=== PATIENT | female | born 1995 | race African-American/Black ===

== ENCOUNTER 2022-04-09 09:26 | Emergency (ER) | payer OTHER, SELFPAY ==
[2022-04-09 09:29] VITALS: BP 138/95; PULSE 76; RESP 18; TEMP 36.6; O2SAT 99; BMI 30.4
[2022-04-09] MEDS: Acetaminophen 325 MG TABLET 975 MG PO (10:22)
--- NOTE | 2022-04-09 10:41 | ED.HA ---
HPI - Headache General Chief Complaint: Headache Stated Complaint: headaches/ Time Seen by Provider: 04/09/22 09:48 Source: patient Mode of arrival: ambulatory Limitations: no limitations History of Present Illness HPI Narrative: 26 yo female who is currently 16(lisa) weeks presents to the ER for evaluation of 1 week of frontal headaches. She states she wakes up with a dull frontal headache each day. She has been taking ibuprofen for them and was not aware it was contraindicated in . She is also not taking a vitamin. She just moved here from [place] and has not seen an OB since she was about 12 weeks along, had a normal sonogram at that time. She denies any vision changes. No vaginal bleeding or cramping. No fever or chills. She presents with her 4 yo son who has had a cough for 2 weeks. She denies any URI symptoms. MD elicited complaint: headache Onset (ago): week(s) (1) Onset description: gradually Location: frontal Severity: moderate Pain scale (0-10): 5 Quality & Timing: aching Relieving factors: rest Context: occurred at rest Associated symptoms: none Treatments prior to arrival: none Related Data Previous Rx's Medication Instructions Recorded acetaminophen 650 mg 650 mg PO Q8H PRN headache #30 tabs 04/09/22 tablet,extended release (Tylenol 8 Hour) vit no.37-iron fum 29 mg 1 tab PO DAILY #30 tabs 04/09/22 iron-folic acid 1 mg chewable tablet (PreNata) Allergies Allergy/AdvReac Type Severity Reaction Status Date / Time Unable to Assess Allergy Verified 04/09/22 09:55 Review of Systems Review of Systems: Constitutional: No Fever, No Chills ENT/Mouth: No sore throat, No Rhinorrhea, No Swallowing Difficulty Eyes: No Eye Pain, No Swelling, No Redness, No vision changes Cardiovascular: No Chest Pain, No SOB, No Edema Respiratory: No Cough, No Sputum, No Wheezing, No dyspnea Gastrointestinal: + Nausea, No Vomiting, No Diarrhea, No abdominal Pain Genitourinary: No Dysuria, No Urinary Frequency, No Hematuria Musculoskeletal: No joint pain, No Myalgias Skin: No Skin Lesions, No rash Neuro: No Weakness, No Numbness, No Dizziness, + Headache Heme/Lymph: No Bruising, No Lymphadenopathy PMFSH Social History Social History Advance Directives: No Advance Directives Information Provided: No Physical Exam Vital Signs: Vital Signs: Last Vital Signs Temp 98 F 04/09/22 09:29 Pulse 76 04/09/22 09:29 Resp 18 04/09/22 09:29 BP 138/95 H 04/09/22 09:29 Pulse Ox 99 04/09/22 09:29 O2 Del Method 04/09/22 09:29 BMI result Body Mass Index 30.4 Appearance: Alert. Oriented X3. No acute distress. Eyes: Pupils equal, round and reactive to light. ENT: Pharynx normal. Neck: Normal inspection. Neck supple. CVS: Normal heart rate and rhythm. Pulses normal. Respiratory: No respiratory distress. Breath sounds normal. Abdomen: Soft and nontender. Gravid uterus palpable between umbilicus and pubic symphysis, normal +BS x4 Skin: Skin warm and dry. Normal skin color. Normal skin turgor. No rashes. Extremities: No lower extremity edema. Neuro: Oriented X 3. No motor deficit. No sensory deficit. Steady gait. CN II-XII intact. Normal speech Course Course Course Narrative: 26-year-old female who is currently 17 weeks presents to the ER for evaluation daily frontal headaches for the last 1 week. No other symptoms. She unfortunately has been taking Motrin for headaches and is not on a . She was counseled today and agrees to follow up with RN CLINICAL COORDINATOR here. She has no neuro deficits and appears well. Tylenol given. COVID and flu checked given her son's symptoms. Reevaluation(s) Reevaluation #1: COVID and Flu are negative. She is stable for d/c home with outpatient OB follow up. MDM - Headache Lab Data Labs: Lab Results 04/09/22 04/09/22 Range/Units 10:20 10:20 COVID-19 (ROSA MARIA) Negative (Negative) COVID-19 Clin Com See Note Influenza Type A (GUNNAR) Negative (Negative) Influenza Type B (GUNNAR) Negative (Negative) Influenza A & B Note See Note Critical Care Time Critical Care Time Critical Care Time: No Discharge Plan Discharge Clinical Impression: Headache, Patient Disposition: Home, Self-Care Instructions: General Headache (ED), at 15 to 18 Weeks (ED) Additional Instructions: You tested negative for COVID and influenza today. Tylenol is the only medication that you can safely take for headaches with . It is important that you start taking the prescribed vitamin. Or you can take any [id number]-[id number] vitamin. It is important that you follow-up with OBGYN. Name and number below. If your last menstrual period was on December 07 your estimated delivery date is September 13 and you are 17 weeks, 4 days today. You will need an ultrasound at the 20 week jalil for anatomy scan. Your blood pressure was slightly elevated today. This will be important for you to follow-up with OBGYN, especially once you have the 20 week jalil. Make sure you are drinking plenty of water. Avoid additional salt in your diet. If you develop new or worsening symptoms call 911 or come back to the ER for further evaluation. Prescriptions: New PreNata 29 mg iron- 1 mg tablet,chewable 1 tab PO DAILY Qty: 30 0RF acetaminophen [Tylenol 8 Hour] 650 mg tablet extended release 650 mg PO Q8H PRN (Reason: headache) Qty: 30 0RF Referrals: Steven Sher MD [Physician] - ( Seventeen weeks , no care) Interventions: ED Discharge Assessment Last Done: 04/09/22 11:56 Discharge Date/Time: 04/09/22 12:04
[2022-04-09 10:49] LABS: COVID-19 Test Negative (Negative); IDNOW Serial# 16C4AD1C; Influenza A Negative (Negative); Influenza B2 Negative (Negative)
== END 2022-04-09 12:04 | disposition home or self-care (01) ==
PROVIDERS: Physician Assistant; Emergency Provider Emergency Medicine
DX: O26.92 Pregnancy related conditions, unspecified, second trimester (principal); R51.9 Headache, unspecified; Z3A.16 16 weeks gestation of pregnancy; Z20.822 Contact with and (suspected) exposure to COVID-19; Z79.899 Other long term (current) drug therapy
CPT/HCPCS: 87502; 87635; 99283

== ENCOUNTER 2022-05-30 14:16 | Emergency (ER) | payer OTHER, SELFPAY ==
[2022-05-30 14:56] VITALS: BP 141/76; PULSE 91; RESP 16; TEMP 36.6; O2SAT 100; BMI 34.9
--- NOTE | 2022-05-30 14:59 | ED.GENADULT ---
HPI - General Adult General Chief complaint: Back Pain/Injury Stated complaint: back pain Related Data Previous Rx's Medication Instructions Recorded acetaminophen 650 mg 650 mg PO Q8H PRN headache #30 tabs 04/09/22 tablet,extended release (Tylenol 8 Hour) vit no.37-iron fum 29 mg 1 tab PO DAILY #30 tabs 04/09/22 iron-folic acid 1 mg chewable tablet (PreNata) Allergies Allergy/AdvReac Type Severity Reaction Status Date / Time Unable to Assess Allergy Verified 04/09/22 09:55 [facility] Social History Social History Advance Directives: No Advance Directives Information Provided: No Physical Exam ED Vital Signs: Vital Signs - 24 hr 05/30/22 14:56 Temperature 98 F Pulse Rate 91 Respiratory Rate 16 Blood Pressure 141/76 H Pulse Oximetry 100 Oxygen Delivery Method Room Air BMI result Body Mass Index 34.9 Course Course Course Narrative: RME: patient presents to the ED for lower back pain that is worse on movement. patient denies any urinary symptoms. patient states no abdominal pain or flank pain. patient states no trauma. UA, UR preg and lumbar xray Reevaluation(s) Reevaluation #1: Lumbar xray cancelled. patient states she is 5 months . patient denies any vomitting, abdominal pain, vaginal bleeding, dysuria, hematuria, or any recent trauma. Time: 15:21 Medical Decision Making Lab Data Labs: Lab Results 05/30/22 Range/Units 15:43 Urine Color Yellow Urine Appearance Clear Urine pH 7.0 (5.0-9.0) Ur Specific [place] 1.010 (1.005-1.025) Urine Protein Negative (Neg-Trace) mg/dL Urine Glucose (UA) Negative (Negative) mg/dL Urine Ketones Negative (Negative) mg/dL Urine Blood Negative (Negative) Urine Nitrite Negative (Negative) Ur Leukocyte Esterase Negative (Negative) Discharge Plan Discharge Clinical Impression: Strain of lumbar region Patient Disposition: Elopement Prescriptions: No Action PreNata 29 mg iron- 1 mg tablet,chewable 1 tab PO DAILY Qty: 30 0RF acetaminophen [Tylenol 8 Hour] 650 mg tablet extended release 650 mg PO Q8H PRN (Reason: headache) Qty: 30 0RF Interventions: ED Discharge Assessment Last Done: 05/30/22 16:37 Discharge Date/Time: 05/30/22 16:40
[2022-05-30 16:01] LABS: Appearance Urine Clear; Color Urine Yellow; Glucose Urine UA Negative (Negative); Leukocyte Esterase Urine Negative (Negative); Nitrite Urine Negative (Negative); Urine Blood Negative (Negative); Urine Ketones Negative (Negative); Urine Protein Negative (Neg-Trace)
== END 2022-05-30 16:40 | disposition left against medical advice (07) ==
PROVIDERS: Physician Assistant; Emergency Provider Emergency Medicine
DX: O9A.212 Injury, poisoning and certain other consequences of external causes complicating pregnancy, second trimester (principal); S39.012A Strain of muscle, fascia and tendon of lower back, initial encounter; X58.XXXA Exposure to other specified factors, initial encounter; Y93.9 Activity, unspecified; Y92.9 Unspecified place or not applicable; Y99.9 Unspecified external cause status; Z3A.00 Weeks of gestation of pregnancy not specified
CPT/HCPCS: 81003; 99282

== ENCOUNTER 2023-10-31 11:16 | Emergency (ER) | payer MEDICAID, SELFPAY ==
--- NOTE | ~2023-10-31 | CT_ITS ---
EXAMINATION: CT HEAD WITHOUT CONTRAST CLINICAL INFORMATION: Headache COMPARISON: None available. TECHNIQUE: Contiguous axial imaging was performed from the skull base to vertex without intravenous administration of contrast. This CT examination was performed using dose optimization techniques as appropriate, variously including the following: *Automated exposure control *Adjustment of mA and/or kV according to patient size (this includes techniques or standardized protocols for targeted exams where dose is matched to indication/reason for exam; i.e. extremities or head) *Use of iterative reconstruction technique DLP: 714.43 mGy-cm FINDINGS: There is no intracranial hemorrhage. There is no evidence of acute/subacute cerebral or cerebellar infarction. There is no midline shift or mass effect. There is no extra-axial fluid collection. The ventricles are normal in size. The orbits are normal in appearance. The calvarium is intact. The visualized paranasal sinuses and mastoid air cells are clear. CT/CT head/brain wo IV con IMPRESSION: No acute intracranial pathology.
--- NOTE | 2023-10-31 11:20 | ED.GENADULT ---
HPI - General Adult General Chief complaint: Headache Stated complaint: headache Time Seen by Provider: 10/31/23 14:32 Source: patient Mode of arrival: ambulatory Limitations: no limitations History of Present Illness HPI narrative: 28 old female healthy presents to ED for headache since last night without any neck stiffness, fever, chills, body aches. Patient admits to photophobia and phonophobia. Patient denies any recent head trauma. Patient denies any rash Related Data Previous Rx's ?Medication ?Instructions ?Recorded acetaminophen 650 mg 650 mg PO Q8H PRN headache #30 tabs 04/09/22 tablet,extended release (Tylenol 8 Hour) vit no.37-iron fum 29 mg 1 tab PO DAILY #30 tabs 04/09/22 iron-folic acid 1 mg chewable tablet (PreNata) [id number]-saiulwqsqrebn-pgasffeu 1 cap PO Q6H PRN pain 5 days #20 10/31/23 50 mg-300 mg-40 mg capsule caps (Fioricet) ketorolac 10 mg tablet 10 mg PO Q6H PRN pain 5 days #20 10/31/23 tabs Allergies Allergy/AdvReac Type Severity Reaction Status Date / Time No Known Allergies Allergy Verified 10/31/23 11:22 Review of Systems Review of Systems: headache since last night without any trauma. Yes all other systems are reviewed and are negative [facility] Social History Social History Advance Directives: No Advance Directives Information Provided: No Physical Exam ED Vital Signs: Vital Signs - 24 hr 10/31/23 11:21 10/31/23 14:05 10/31/23 16:02 Temperature 98 F 98.6 F 98.2 F Pulse Rate 65 70 84 Respiratory Rate 19 16 16 Blood Pressure 134/80 142/85 H 151/84 H Pulse Oximetry 98 100 96 Oxygen Delivery Method Room Air Room Air BMI result Body Mass Index 37.8 Const General: cooperative, healthy appearing, comfortable, no acute distress, well developed, alert and awake Orientation/consciousness: oriented to person, oriented to place, oriented to time and patient oriented x3 HENMT Head: Yes normal to inspection, Yes No palpable skull fracture present, Yes normocephalic, Yes atraumatic and No abrasion Ears: hearing grossly normal bilaterally, external ears normal, TM's normal bilaterally, TM normal on the right, TM normal on the left, EAC's normal, mastoids normal and no periauricular adenopathy Throat: Yes posterior oropharynx normal, Yes tonsils normal and Yes uvula midline Eyes General: appearance normal, both eyes and all related structures Neck Neck: Yes normal visual inspection, Yes full ROM, Yes no lymphadenopathy, Yes no meningeal signs, Yes trachea midline, Yes supple, No anterior neck swelling and No tender Chest Chest palpation & inspection: normal inspection of the chest and normal palpation of entire chest wall Resp Effort & Inspection: normal respiratory effort and able to speak in complete sentences Auscultation: clear to auscultation bilaterally Cardio Jugular venous distension: no JVD Heart sounds: S1 normal heart sound present and S2 normal heart sound present GI Inspection: Yes normal to inspection Palpation (GI): Soft to palpation, not firm, nontender, no guarding and not rigid General: No CVA tenderness and Yes no CVA tenderness Back/Spine/Pelvis Back: no CVA tenderness, No CVA tenderness and No back tenderness Skin General skin exam: no rashes or lesions noted, elasticity normal and turgor normal Neuro General: oriented to person, oriented to place, oriented to time, patient oriented x3, gait normal, tone normal, moves all extremities, Normal light touch and pain sensation, no meningeal signs, no focal motor deficits, CN's II-XI intact bilaterally and normal sensation to monofilament Extrem General: Yes normal to inspection, Yes full ROM and Yes capillary refill normal Psych Appearance: grossly normal, well kempt and not disheveled Course Course Course Narrative: This is a rapid medical exam performed by Sandra Merrill NP: Additional HPI, ROS, PE not included below will be deferred to primary provider. Patient is a 28-year-old female presenting to the emergency department with complaint of headache since yesterday and low back pain. Took ibuprofen and Tylenol last night without relief. She is awake, alert, oriented x 3 with no focal neurological deficits. Plan: viral swabs, UA/Upreg Medications Administered Discontinued Medications Generic Name Dose Route Start Last Admin Trade Name Freq PRN Reason Stop Dose Admin Acetaminophen/Butalbital/Caffeine 2 tab 10/31/23 14:49 10/31/23 14:56 Butalb/Acetamin/Caff 50/325/40 Tablet PO 10/31/23 14:50 2 tab ONCE ONE Administration Dexamethasone Sodium Phosphate 8 mg 10/31/23 17:17 10/31/23 17:34 Dexamethasone Sod Phosphate 4 Mg/Ml Vial IVPUSH 10/31/23 17:18 8 mg ONCE ONE Administration Diphenhydramine HCl 50 mg 10/31/23 17:17 10/31/23 17:34 Diphenhydramine Hcl 50 Mg/Ml Vial IVPUSH 10/31/23 17:18 50 mg ONCE ONE Administration Magnesium Sulfate 2 gm in 50 mls @ 25 mls/hr 10/31/23 17:17 10/31/23 17:34 Magnesium Sulfate/H2o IV 10/31/23 19:16 25 mls/hr ONCE ONE Administration Ketorolac Tromethamine 30 mg 10/31/23 16:00 10/31/23 16:27 Ketorolac Tromethamine 30 Mg/Ml Vial IM 10/31/23 16:01 30 mg ONCE ONE Administration Metoclopramide HCl 10 mg 10/31/23 14:49 10/31/23 14:56 Metoclopramide Hcl 10 Mg Tablet PO 10/31/23 14:50 10 mg ONCE ONE Administration Metoclopramide HCl 10 mg 10/31/23 17:24 10/31/23 17:35 Metoclopramide Hcl 10 Mg/2 Ml Vial IVPUSH 10/31/23 17:25 10 mg ONCE ONE Administration Medical Decision Making Medical Decision Making MDM Narrative: [age] year old female presents ED for headache since last night with some photophobia. Patient denies any neck stiffness fever, chills, body aches, night sweats, or chills. Patient denies any trauma, initial SARs strep came back negative. Urine negative for or infection. Patient sent for head CT scan came back normal. Toradol added. Will do migraine IV cocktail. History physical exam does not indicate meningitis, encephalitis, stroke or brain bleed. negative for any neuro deficits. 19:10: patient feels better after IV migraine cocktail Differential Diagnosis Differential Diagnoses: The differential diagnosis associated with the presentation includes ( migraine headache, meningitis, brain bleed) Admission/Observation Consideration of admission/observation: Escalation of care including admission/observation considered Lab Data [facility] Lab Attestation statement: I reviewed the patient's lab results. 10/31/23 17:27 10/31/23 17:27 Labs: Lab Results 05/03/24 05/03/24 Range/Units 11:30 17:27 WBC 7.6 (4.8-10.8) X10*3/uL RBC 5.04 (4.20-5.50) X10*6/uL Hgb 13.9 (12.0-16.0) g/dl Hct 40.5 (37.0-47.0) % MCV 80.4 (80.0-98.0) fL MCH 27.6 (27.0-33.0) pg MCHC 34.3 (31.0-35.0) g/dl RDW 13.9 (11.0-16.0) % Plt Count 188 (160-400) X10*3/uL MPV 12.5 H (9.4-12.3) fL Immature Gran % (Auto) Cancelled Neut % (Auto) Cancelled Lymph % (Auto) Cancelled [place] % (Auto) Cancelled Eos % (Auto) Cancelled Baso % (Auto) Cancelled Lymph # (Auto) Cancelled [place] # (Auto) Cancelled Eos # (Auto) Cancelled Baso # (Auto) Cancelled Abs Immat Gran (auto) Cancelled Absolute Neuts (auto) Cancelled Absolute Nucleated RBC 0.000 (0.0-0.012) X10*3/uL Nucleated RBC % (auto) 0.0 (0.0-0.2) /100WBC Neutrophils % (Manual) 62 (45-73) % Lymphocytes % (Manual) 32 (20-40) % Monocytes % (Manual) 2 (2-11) % Eosinophils % (Manual) 3 (0-4) % Basophils % (Manual) 1 (0-2) % Abs Neuts (Manual) Not Reportable Lymphocytes # (Manual) 2.4 (1.2-4.9) X10*3/uL Monocytes # (Manual) 0.2 (0.1-1.2) X10*3/uL Eosinophils # (Manual) 0.2 (0.0-0.4) X10*3/uL Basophils # (Manual) 0.1 (0.0-0.2) X10*3/uL Platelet Estimate NORMAL (NORMAL) Plt Morphology Comment NORMAL RBC Morphology NORMAL Sodium 139 (135-145) mmol/L Potassium 3.8 (3.3-5.1) mmol/L Chloride 105 (96-108) mmol/L Carbon Dioxide 26 (22-29) mmol/L Anion Gap 12 (12-20) BUN 7 L (9-16) mg/dL Creatinine 0.80 (0.5-1.4) mg/dL Estim Creat Clear Calc 122.3 Estimated GFR > 60 Random Glucose 98 (60-115) mg/dL Calcium 9.7 (8.4-10.2) mg/dL Total Bilirubin 0.5 (0.0-1.0) mg/dL AST 12 (5-31) U/L ALT 11 (0-31) U/L Alkaline Phosphatase 54 (39-117) U/L Total Protein 8.1 H (6.5-8.0) g/dL Albumin 4.1 (3.5-5.0) g/dL Urine Color Yellow Urine Appearance Clear Urine pH 5.5 (5.0-9.0) Ur Specific [place] 1.015 (1.005-1.025) Urine Protein Negative (Neg-Trace) mg/dL Urine Glucose (UA) Negative (Negative) mg/dL Urine Ketones Negative (Negative) mg/dL Urine Blood Negative (Negative) Urine Nitrite Negative (Negative) Ur Leukocyte Esterase Negative (Negative) Urine Test NEGATIVE (NEGATIVE) Influenza Type A (PCR) NEGATIVE (Negative) Influenza Type B (PCR) NEGATIVE (Negative) RSV RNA Qual (PCR) NEGATIVE (Negative) SARS-CoV-2 RNA (RT-PCR) NEGATIVE (Negative) Independent Historian Clinical information obtained from an independent historian. History obtained from or confirmed by: Other ( patient) External Record Review External record reviewed: Other ( previous visits) Prescription Management I considered prescription management with: Pain Medication Discharge Plan Discharge Clinical Impression: Migraine, Headache Patient Disposition: Home, Self-Care Instructions: Migraine Headache (ED), Acute Headache (ED) Additional Instructions: recommend follow-up with your primary care provider, your blood work and CT scan came back normal. Return to the ED immediately for any slurred speech, facial droop, paralysis of extremities, neck stiffness, fever, chills, worsening headache, nausea, vomiting, or any other concerning symptoms. Prescriptions: New ketorolac 10 mg tablet 10 mg PO Q6H PRN (Reason: pain) 5 Days Qty: 20 0RF Rx Instructions: Patient received ketorolac 30 IM in ED. take with food [id number]-uwunjrwkvldgi-[id number] [Fioricet] 50-300-40 mg capsule 1 cap PO Q6H PRN (Reason: pain) 5 Days Qty: 20 0RF No Action PreNata 29 mg iron- 1 mg tablet,chewable 1 tab PO DAILY Qty: 30 0RF acetaminophen [Tylenol 8 Hour] 650 mg tablet extended release 650 mg PO Q8H PRN (Reason: headache) Qty: 30 0RF Stand Alone Forms: Work/School Release Interventions: ED Discharge Assessment Last Done: 10/31/23 19:26 Discharge Date/Time: 10/31/23 19:26 Print Language: Eri Berg
[2023-10-31 11:21] VITALS: BP 134/80; PULSE 65; RESP 19; TEMP 36.6; O2SAT 98; BMI 37.8
[2023-10-31 11:40] LABS: Appearance Urine Clear; Color Urine Yellow; Glucose Urine UA Negative (Negative); Leukocyte Esterase Urine Negative (Negative); Nitrite Urine Negative (Negative); PH 5.5 (5.0-9.0); Specific Gravity - Urine 1.015 (1.005-1.025); Urine Blood Negative (Negative); Urine Ketones Negative (Negative); Urine Protein Negative (Neg-Trace)
[2023-10-31 11:41] LABS: UPreg QC Valid YES; Urine Pregnancy NEGATIVE (NEGATIVE)
[2023-10-31 12:12] LABS: Influenza A PCR NEGATIVE (Negative); Influenza B PCR NEGATIVE (Negative); Resp Syncy Virus RNA Qual PCR NEGATIVE (Negative); SARS COV2 PCR INHOUSE NEGATIVE (Negative)
[2023-10-31 14:05] VITALS: BP 142/85; PULSE 70; RESP 16; TEMP 37; O2SAT 100
[2023-10-31] MEDS: Metoclopramide HCl 10 MG TABLET PO (14:56)
[2023-10-31] MEDS: Butalb/Acetamin/Caff 50/325/40 TABLET 2 TAB PO (14:56)
[2023-10-31 16:02] VITALS: BP 151/84; PULSE 84; RESP 16; TEMP 36.8; O2SAT 96
[2023-10-31] MEDS: Ketorolac Tromethamine 30 MG/ML VIAL IM (16:27)
[2023-10-31] MEDS: diphenhydrAMINE HCL 50 MG/ML VIAL IVPUSH (17:34)
[2023-10-31] MEDS: Magnesium Sulfate/H2O 2 GM/50 ML PIGGYBACK IV (17:34)
[2023-10-31] MEDS: dexAMETHasone sod phosphate 4 MG/ML VIAL 8 MG IVPUSH (17:34)
[2023-10-31 17:35] LABS: Hematocrit 40.5 % (37.0-47.0); Hemoglobin 13.9 g/dl (12.0-16.0); Mean Corpuscular HGB Conc 34.3 g/dl (31.0-35.0); Mean Corpuscular Hemoglobin 27.6 pg (27.0-33.0); Mean Corpuscular Volume 80.4 fL (80.0-98.0); Mean Platelet Volume 12.5 fL (9.4-12.3); Platelet Count 188 X10*3/uL (160-400); Red Blood Count 5.04 X10*6/uL (4.20-5.50); Red Cell Distribution Width 13.9 % (11.0-16.0)
[2023-10-31] MEDS: Metoclopramide HCl 10 MG/2 ML VIAL IVPUSH (17:35)
[2023-10-31 17:36] LABS: WBC ABN SCTR FOR CBC 1
[2023-10-31 17:50] LABS: Alanine Aminotransferase 11 U/L (0-31); Albumin Level 4.1 g/dL (3.5-5.0); Alkaline Phosphatase 54 U/L (39-117); Anion Gap 12 (12-20); Aspartate Amino Transferase 12 U/L (5-31); Bilirubin Total 0.5 mg/dL (0.0-1.0); Blood Urea Nitrogen 7 mg/dL (9-16); Calcium 9.7 mg/dL (8.4-10.2); Carbon Dioxide 26 mmol/L (22-29); Chloride 105 mmol/L (96-108); Creatinine Clr Calc Pharmacy 122.3; Estimated Glomerular Filt Rate > 60; Glucose Random 98 mg/dL (60-115); Potassium 3.8 mmol/L (3.3-5.1); Sodium 139 mmol/L (135-145); Total Protein 8.1 g/dL (6.5-8.0)
[2023-10-31 18:29] LABS: Basophils Percent Manual 1 % (0-2); Eosinophils Percent Manual 3 % (0-4); Lymphocytes Percent Manual 32 % (20-40); Monocytes Percent Manual 2 % (2-11); Neutrophils Percent Manual 62 % (45-73)
[2023-10-31 18:33] LABS: RBC Morphology NORMAL
[2023-10-31 18:34] LABS: Basophils Abs Manual 0.1 X10*3/uL (0.0-0.2); Eosinophils Absolute Manual 0.2 X10*3/uL (0.0-0.4); Lymphocytes Absolute Manual 2.4 X10*3/uL (1.2-4.9); Monocytes Absolute Manual 0.2 X10*3/uL (0.1-1.2); Platelet Estimate NORMAL (NORMAL); Platelet Morphology Comment NORMAL; White Blood Count 7.6 X10*3/uL (4.8-10.8)
[2023-10-31 19:26] VITALS: BP 151/84; PULSE 84; RESP 16; TEMP 36.8; O2SAT 96
== END 2023-10-31 19:26 | disposition home or self-care (01) ==
PROVIDERS: Physician Assistant; Registered Nurse Emergency; Emergency Provider Emergency Medicine
DX: G43.909 Migraine, unspecified, not intractable, without status migrainosus (principal)
CPT/HCPCS: 0241U; 36415; 70450; 80053; 81003; 81025; 85007; 85027; 96372; 96374; 96375; 99285; J1100; J1200; J1885; J2765; J3475

== ENCOUNTER 2023-11-02 22:44 | Emergency (ER) | payer MEDICAID, SELFPAY ==
[2023-11-02 22:50] VITALS: BP 147/88; PULSE 70; RESP 16; TEMP 36.4; O2SAT 100; BMI 38.0
[2023-11-03 01:30] VITALS: BP 143/84; PULSE 75; RESP 16; TEMP 36.6; O2SAT 100
--- NOTE | 2023-11-03 01:40 | ED.HA ---
HPI - Headache General Chief Complaint: Headache Stated Complaint: Headache Time Seen by Provider: 11/03/23 01:40 Source: patient Mode of arrival: ambulatory Limitations: no limitations History of Present Illness HPI Narrative: Patient with no diagnosed history of migraine was seen 2 days ago for headache which started on 10/29 mostly localized behind the eyes feel like somebody poking associated with light sensitivity no nausea no vomiting no blurred vision no change in headache with posterior no recent head injury. On 10/30 patient was seen in the ER at CT scan of the head done which was negative was discharged on Fioricet was better till today morning when started having headache again with photosensitivity no fever no chills no neck pain Related Data Previous Rx's ?Medication ?Instructions ?Recorded acetaminophen 650 mg 650 mg PO Q8H PRN headache #30 tabs 04/09/22 tablet,extended release (Tylenol 8 Hour) vit no.37-iron fum 29 mg 1 tab PO DAILY #30 tabs 04/09/22 iron-folic acid 1 mg chewable tablet (PreNata) pexiwmuqzy-hnnhvnwhtsecm-bikjscrz 1 cap PO Q6H PRN pain 5 days #20 10/31/23 50 mg-300 mg-40 mg capsule caps (Fioricet) ketorolac 10 mg tablet 10 mg PO Q6H PRN pain 5 days #20 10/31/23 tabs sumatriptan succinate 50 mg tablet 50 mg PO Q2H PRN migraine headache 11/03/23 (Imitrex) #10 tabs Allergies Allergy/AdvReac Type Severity Reaction Status Date / Time No Known Allergies Allergy Verified 11/02/23 22:53 Review of Systems Review of Systems: Yes all other systems are reviewed and are negative [facility] Social History Social History Advance Directives: No Advance Directives Information Provided: No Do you have a plan to hurt others: No Plan Physical Exam Vital Signs: Vital Signs: Last Vital Signs Temp 98.4 F 11/03/23 04:15 Pulse 66 11/03/23 04:15 Resp 16 11/03/23 04:15 BP 155/80 H 11/03/23 04:15 Pulse Ox 98 11/03/23 04:15 O2 Del Method Room Air 11/03/23 04:15 BMI result Body Mass Index 38.0 Appearance: Alert. Oriented X3. No acute distress. Photosensitive Eyes: PERRLA, No Nystagmus ENT: Pharynx normal. Oral Mucosa moist no temporal artery tenderness no sinus tenderness Neck: Normal inspection. Neck supple. CVS: Normal heart rate and rhythm. Pulses normal. Respiratory: No respiratory distress. Equal air entry bilateral, no wheezing/rales/rhonchi Abdomen: Soft and nontender. Bowel sounds are present, Skin: Skin warm and dry. Normal skin color. Normal skin turgor. Extremities: No lower extremity edema. No calf tenderness Neuro: Oriented X 3. No motor deficit. No sensory deficit.No cerebellar signs , cranial nerves II-XII intact Medications Administered Discontinued Medications Generic Name Dose Route Start Last Admin Trade Name Freq PRN Reason Stop Dose Admin Sumatriptan Succinate 6 mg 11/03/23 01:41 11/03/23 01:54 Sumatriptan Succinate 6 Mg/0.5 Ml Vial SUBCUT 11/03/23 01:42 6 mg ONCE ONE Administration Medical Decision Making Medical Decision Making [facility] Narrative: Patient clinically with ocular migraine headache improved after Imitrex will discharge patient on Imitrex advised to continue Fioricet Discharge Plan Discharge Clinical Impression: Migraine Patient Disposition: Home, Self-Care Instructions: Migraine Headache (ED) Additional Instructions: Rest at home Take Imitrex 1 tablet at onset of headache may repeat in 2 hours if headache persists Continue Fioricet for headache as needed Follow with your PCP Prescriptions: New sumatriptan succinate [Imitrex] 50 mg tablet 50 mg PO Q2H PRN (Reason: migraine headache) Qty: 10 0RF Rx Instructions: do not exceed 2 doses per 24 hrs No Action PreNata 29 mg iron- 1 mg tablet,chewable 1 tab PO DAILY Qty: 30 0RF acetaminophen [Tylenol 8 Hour] 650 mg tablet extended release 650 mg PO Q8H PRN (Reason: headache) Qty: 30 0RF ketorolac 10 mg tablet 10 mg PO Q6H PRN (Reason: pain) 5 Days Qty: 20 0RF Rx Instructions: Patient received ketorolac 30 IM in ED. take with food vloocavlyq-bdkytojgeyttb-fshm [Fioricet] 50-300-40 mg capsule 1 cap PO Q6H PRN (Reason: pain) 5 Days Qty: 20 0RF Stand Alone Forms: Work/School Release Interventions: ED Discharge Assessment Last Done: 11/03/23 04:15 Discharge Date/Time: 11/03/23 04:16 Print Language: Eri Berg
[2023-11-03] MEDS: SUMAtriptan succinate 6 MG/0.5 ML VIAL SUBCUT (01:54)
[2023-11-03 03:38] VITALS: BP 155/80; PULSE 66; RESP 16; TEMP 36.9; O2SAT 98
[2023-11-03 04:15] VITALS: BP 155/80; PULSE 66; RESP 16; TEMP 36.9; O2SAT 98
== END 2023-11-03 04:16 | disposition home or self-care (01) ==
PROVIDERS: Emergency Provider Internal Medicine
DX: G43.909 Migraine, unspecified, not intractable, without status migrainosus (principal); Z79.899 Other long term (current) drug therapy
CPT/HCPCS: 96372; 99284; J3030

== ENCOUNTER 2024-11-26 16:20 | Outpatient (REF) | payer MEDICAID, SELFPAY ==
--- OUTSIDE RECORDS SUMMARY | 2024-11-26 16:22 | XMS_ITS | Clinical Summary ---
Author Organization [employer] Address [address] [place] [address] Care Team Providers Care Outside Residential Sales Professional Name Role Phone Kiesha Moreno MD Primary Care Provide r Allergies No known active allergies Medications SUMAtriptan (Imitrex) 50 MG tablet Take 50 mg by mouth 1 (one) time if needed for migraine. May repeat dose once in 2 hours if no relief. Do not exceed 2 doses in 24 hours. Active Blood Pressure kit 1 each 2 times daily. 1 kit 11/06/2023 Active Problems Problem Noted Date Diagnosed Date Chronic tension-type headache, not intractable 0 07/16/2024 Assessment & Plan (07/16/2024 11:21 AM EST): Currently stable Severe obesity 04/13/2024 Assessment & Plan (07/16/2024 11:21 AM EST): Today extensive discussion was done about life style modifications I advise healthy diet (low calorie) and cardiovascular exercise Labs ordered Encounters Date Type Department Care Team Description 11/26/2024 Telephone [facility] MEDICINE [address], [place] [phone] Kiesha Moreno MD Chart Prep 10/05/2024 2:00 PM EDT Office Visit [facility] ADULT DENTAL [address], [place] [phone] Comfort Linares DDS Fractured dental restorative material (Primary Dx) 09/29/2024 8:00 AM EDT Office Visit [facility] ADULT DENTAL [address] [place] [address] Caesar Victor Dental calculus (Primary Dx) 09/29/2024 Telephone [facility] ADULT DENTAL [address] [place] [address] Lyn-HernandezComfort, DDS 09/28/2024 3:00 PM EDT Office Visit [facility] ADULT DENTAL [address] [place] [address] Lyn-Hernandez Comfort, DDS Need for full coverage dental crown (Primary Dx) 09/17/2024 1:00 PM EDT Office Visit [facility] ADULT DENTAL [address] [place] [address] Lyn-HernandezDevanComfort, DDS Need for full coverage dental crown (Primary Dx) 09/10/20[address] [facility] () [address] [phone] Provider, Population Health Generic 08/31/2024 Telephone [facility] MEDICINE [address] [place] [address] Kiesha Moreno MD No Show from Last 3 Months Social History Tobacco Use Types Packs/Day Years Used Date Smoking Tobacco: Never Passive Smoke Exposure: Never Smokeless Tobacco: Never Tobacco Cessation:Counseling Given: Not Answered Alcohol Use Standard Drinks/Week Comments Never 0 (1 standard drink = 0.6 oz pur e alcohol) Housing Stability Answer Date Recorded What is your housing situation today? I do not have housing (Staying with others, in a hotel, in a longterm, living outside on the street, on a beach, in a car, or in a park 04/20/[address] you li ve. Do you have problems with any of the following? None of the above 04/20/2024 Food Insecurity Answer Date Recorded Within the past 12 months, y ou worried that your food would run out before you got money to buy more: Never True 04/20/2024 Within the past 12 months,th e food you bought just didn't last and you didn't have enough money to get more: Never True Transportation Answer Date Recorded In the past 12 months, has l ack of transportation kept you from medical appts, meetings, work or from getting things needed for daily living? No 04/20/2024 Utilities Answer Date Recorded In the past 12 months, has t he electric, gas, oil or water company threatened to shut off services in your home? No 04/20/2024 Internet Access Answer Date Recorded Internet Access Q1 Yes 04/20/2024 Internet Access Q2 Not on file 04/20/2024 Comments Unknown Sex and Gender Information Value Date Recorded Sex Assigned at Female 07/30/2022 9:25 AM EST Legal Sex Female 9:23 AM EST Gender Identity Female 07/30/2022 9:25 AM EST Sexual Orientation Straight 07/30/2022 9: 25 AM EST Last Filed Vital Signs Vital Sign Reading Time Taken Comments Blood Pressure 146/82 10/05/2024 2:15 PM EDT Pulse 65 09/29/2024 8:06 AM EDT Temperature 36.1 ??C (96.9 ??F) 07/16/2024 10:[address] Respiratory Rate 16 07/16/2024 10:42 AM EST Oxygen Saturation 90% 07/16/2024 10:42 AM EST Inhaled Oxygen Concentration - - Weight 98.9 kg (218 lb) 07/16/2024 10:42 AM EST Height 165.1 cm (5' 5 ) 07/16/2024 10:42 AM EST Body Mass Index 36.28 07/16/2024 10:42 AM EST Plan of Treatment Upcoming Encounters Date Type Department Care Team (Late st Contact Info) Description 11/29/2024 1:30 PM EDT Procedure Visit [facility] MEDICINE [address] [place] [phone] Kiesha Moreno MD [address] [place] [address] Health Maintenance Due Date Last Done Comments Depression Screening 1993 HIV Screening 1993 Lipid Panel 1993 Disability Screening 1993 Alcohol/Substance Use Screening 2005 Family Planning (PISQ) 2008 Hepatitis C Screening 2011 DTaP/Tdap/Td Vaccines (1 - Tdap) 2012 Hepatitis B Vaccines (1 of 3 - 19+ 3-dose series) 2012 COVID-19 Vaccine ( - 2023-2 5 season) 2024 Influenza Vaccine (#1) 2024 Dental X-Ray: Bitewings 03/24/2025 03/23/20, 11/12/2022 Dental Oral Exam 03/31/2025 09/28/2024, 04/13/2024, 11/12/2022 Dental Prophylaxis 04/01/2025 09/29/2024, 03/23/2024, 11/20/2022 SDOH Screening 04/20/2025 04/20/2024 Tobacco Screening 10/05/2025 10/05/2024 Dental X-Ray: Full Mouth 11/13/2025 11/12/2022 Cervical Cancer Screening 06/17/2027 HPV/Cotest 06/17/2027 Pap Smear 06/17/2027 06/17/2022 Zoster Vaccines (1 of 2) 2043 RSV Patients and Patients Aged 60 years or older (1 - 1-dose 75+ series) 2068 HIB Vaccines Aged Out No longer eligi ble based on patient's age to complete this topic HPV Vaccines Aged Out No longer eligi ble based on patient's age to complete this topic Hepatitis A Vaccines Aged Out No long er eligible based on patient's age to complete this topic IPV Vaccines Aged Out No longer eligi ble based on patient's age to complete this topic Meningococcal B Vaccine Aged Out No l onger eligible based on patient's age to complete this topic Meningococcal Vaccine Aged Out No enio fly eligible based on patient's age to complete this topic Pneumococcal Vaccine: Pediatrics (0 to 5 Years) and At-Risk Patients (6 to 49) Years) Aged Out No longer eligible b ased on patient's age to complete this topic RSV under 20 months Aged Out No longe r eligible based on patient's age to complete this topic Rotavirus Vaccines Aged Out No longer eligible based on patient's age to complete this topic Procedures Procedure Name Priority Date/Time Associated Diagnosis Comments CASE PRESENTATION, DETAILED AND EXTENSIVE TREATMENT PLANNING Routine 10/05/2024 2:00 PM EDT Fractured dental restorative material DENTURE IMPRESSION Routine 10/05/2024 2: 00 PM EDT Fractured dental restorative material 20 O RESIN-BASED COMPOSITE - 1 SURF, POSTERIOR Routine 10/05/2024 2:00 PM EDT Fractured dental restorative material PROPHYLAXIS - ADULT Routine 09/29/2024 8 :00 AM EDT CASE PRESENTATION, DETAILED AND EXTENSIVE TREATMENT PLANNING Routine 09/29/2024 8:00 AM EDT ORAL HYGIENE INSTRUCTIONS Routine 09/29/2024 8:00 AM EDT CASE PRESENTATION, DETAILED AND EXTENSIVE TREATMENT PLANNING Routine 09/28/2024 3:00 PM EDT INTRAORAL - PERIAPICAL EACH ADDITIONAL RADIOGRAPHIC IMAGE Routine 09/28/2024 3:00 PM EDT INTRAORAL - PERIAPICAL FIRST RADIOGRAPHIC IMAGE Routine 09/28/2024 3:00 PM EDT 21 CROWN - PORCELAIN/CERAMIC Routine 09/28/2024 3:00 PM EDT PERIODIC ORAL EVALUATION - ESTABLISHED PATIENT Routine 09/28/2024 3:00 PM EDT CASE PRESENTATION, DETAILED AND EXTENSIVE TREATMENT PLANNING Routine 09/17/2024 1:00 PM EDT Need for full coverage dental crown 21 CORE BUILDUP, INCL ANY PINS WHEN REQ Routine 09/17/2024 1:00 PM EDT Need for full coverage dental crown CROWN PREP Routine 09/17/2024 1:00 PM EDT Need for full coverage dental crown BITEWINGS - 4 RADIOGRAPHIC IMAGES Routine 03/23/2024 2:00 PM EDT INTRAORAL - COMPLETE SERIES OF RADIOGRAPHIC IMAGES Routine 11/12/2022 10:30 AM EDT Encounter for dental examination Dental caries Dental abscess HM PAP/HPV Routine 06/17/2022 1:07 PM EST from Last 3 Months or Most Recently Relevant to Health Maintenance Results * HM PAP/HPV (06/17/2022 1:07 PM EST) Historical Provider HEALTH MAINTENANCE Final Result from Last 3 Months or Most Recently Relevant to Health Maintenance Insurance [facility] AD[facility] Care Teams Outside Residential Sales Professional Relationship Specialty Start Date End Date Kiesha Moreno MD [address] [place] [id number] PCP - General Internal Medicine 07/16/24
[2024-11-26 17:02] LABS: MANUAL DIFF FLAG NO
[2024-11-26 17:21] LABS: Basophils Percent Auto 0.4 % (0-2); Eosinophils Absolute Auto 0.1 X10*3/uL (0.0-0.4); Eosinophils Percent Auto 0.9 % (0-4); Hematocrit 35.6 % (37.0-47.0); Imm Gran Abs Auto 0.06 X10*3/uL (0.00-0.03); Imm Gran Pct Auto 0.9 % (0.0-0.4); Lymphocytes Absolute Auto 1.8 X10*3/uL (1.2-4.9); Lymphocytes Percent Auto 26.3 % (20-40); Mean Corpuscular HGB Conc 33.7 g/dl (31.0-35.0); Mean Corpuscular Hemoglobin 27.3 pg (27.0-33.0); Mean Corpuscular Volume 81.1 fL (80.0-98.0); Mean Platelet Volume 12.5 fL (9.4-12.3); Monocytes Absolute Auto 0.5 X10*3/uL (0.1-1.2); Neutrophils Absolute Auto 4.5 x10*3/uL (2.0-8.3); Neutrophils Percent Auto 64.5 % (45-73); Platelet Count 198 X10*3/uL (160-400); Red Blood Count 4.39 X10*6/uL (4.20-5.50); Red Cell Distribution Width 13.8 % (11.0-16.0)
[2024-11-26 17:26] LABS: Estimated Average Glucose 108 mg/dL; Hemoglobin A1c % 5.4 % (<6.0)
[2024-11-26 17:29] LABS: Alanine Aminotransferase 12 U/L (0-31); Albumin Level 3.8 g/dL (3.5-5.0); Anion Gap 7 (12-20); Aspartate Amino Transferase 22 U/L (5-31); Bilirubin Total 0.3 mg/dL (0.0-1.0); Blood Urea Nitrogen 13 mg/dL (9-16); Calcium 8.7 mg/dL (8.4-10.2); Carbon Dioxide 27 mmol/L (22-29); Chloride 107 mmol/L (96-108); Cholesterol 170 mg/dL (<200); Estimated Glomerular Filt Rate > 60; Glucose Random 73 mg/dL (60-115); HDL Cholesterol 40 mg/dL (>40); LDL Cholesterol Calculated 112 mg/dL (<100); Sodium 137 mmol/L (135-145); Total Protein 7.1 g/dL (6.5-8.0); Triglycerides 93 mg/dL (<150)
[2024-11-26 17:51] LABS: TSH reflex Free T4 1.18 uIU/mL (0.32-4.0); Vitamin D 25-OH Total 16.6 ng/mL (>30)
[2024-11-26 18:27] LABS: Alkaline Phosphatase 52 U/L (39-117)
[2024-11-28 03:46] LABS: HIV AB/AG Nonreactive (Nonreactive); HIV Num 1 0.06 S/CO (0.00-0.99); ~HepC Num1 0.11 S/CO (0.00-0.79); ~Hepatitis C Antibody Nonreactive (Nonreactive)
== END 2024-11-26 16:21 | disposition home or self-care (01) ==
LOC: HO.HHCL 16:20
PROVIDERS: Visit Provider Internal Medicine
DX: G44.229 Chronic tension-type headache, not intractable (principal); E66.812 Obesity, class 2; Z68.36 Body mass index [BMI] 36.0-36.9, adult
CPT/HCPCS: 36415; 80053; 80061; 82306; 83036; 84443; 85025; 86803; 87389

== ENCOUNTER 2025-01-06 14:58 | Outpatient (REF) | payer MEDICAID, SELFPAY ==
--- NOTE | ~2025-01-06 | US_ITS ---
EXAMINATION: US PELVIS CLINICAL INFORMATION: Heavy menses. COMPARISON: None available. TECHNIQUE: Ultrasound of the pelvis is performed using both transabdominal and transvaginal transducers along with Doppler. Transvaginal imaging is performed due to inadequate visualization transabdominally. FINDINGS: Uterus: The uterus is anteverted, retroflexed, and measures 8.5 x 4.1 x 4.9 cm. There are nabothian cysts within a normal-appearing cervix. The double wall endometrial thickness is 6 mm. Mild mobile mixed echogenicity probable blood products are present within the endometrial canal. The uterus is smooth in contour and has heterogeneous myometrial echogenicity. No visible discrete fibroid. Adnexa: Both ovaries are visualized. There is normal color flow to the adnexa. There is no ovarian torsion. There is no pelvic ascites or fluid collection. There are no adnexal masses. Right ovary measures 3.9 x 3.3 x 2.4 cm. Volume = 16.2 mL. Normal sonographic appearance. Left ovary measures 2.6 x 2.7 x 2.1 cm. Volume = 7.7 mL. Normal sonographic appearance. US/US pelvic and transvaginal IMPRESSION: 1. No significant endometrial thickening. Mild Global mixed echogenicity probable blood products are noted within the endometrial canal. 2. No discrete fibroid or mass. Heterogeneous appearing myometrium is nonspecific. 3. Normal ovaries bilaterally. No adnexal abnormalities. Electronically signed by: Praveen De Leon MD 01/06/2025 03:34 PM EDT
--- OUTSIDE RECORDS SUMMARY | 2025-01-06 15:02 | XMS_ITS | Clinical Summary ---
Author Organization [employer] Address [address] [facility] [address] [place] [address] Care Team Providers Care Division Sales Manager Name Role Phone Kiesha Moreno MD Primary Care Provide r Allergies No known active allergies Medications SUMAtriptan (Imitrex) 50 MG tablet Take 50 mg by mouth 1 (one) time if needed for migraine. May repeat dose once in 2 hours if no relief. Do not exceed 2 doses in 24 hours. Active Drospirenone (Slynd) 4 MG tablet Take 1 tablet by mouth Once per day. 28 tablet 11 12/20/2024 Active levonorgestrel (Plan B) 1.5 MG tablet Take 1 tablet (1.5 mg) by mouth 1 (one) time for 1 dose. 1 tablet 12/20/2024 Active Problems Problem Noted Date Diagnosed Date Chronic tension-type headache, not intractable 0 07/16/2024 Assessment & Plan (07/16/2024 11:21 AM EST): Currently stable Severe obesity 04/13/2024 Assessment & Plan (07/16/2024 11:21 AM EST): Today extensive discussion was done about life style modifications I advise healthy diet (low calorie) and cardiovascular exercise Labs ordered Encounters Date Type Department Care Team Description 12/20/2024 11:00 AM EDT Office Visit [facility] [address] [place] [phone] Katherine Lee CNM Family planning counseling (Primary Dx); Menorrhagia with regular cycle 12/20/2024 Travel 11/29/2024 Telephone [facility] [address] [place] [phone] Kiesha Moreno MD 11/26/2024 Telephone [facility] [address] [place] [phone] Kiesha Moreno MD Chart Prep from Last 3 Months Social History Tobacco [...] with others, in a hotel, in a senior care, living outside on the street, on a [...] Access Q2 Not on file 04/20/2024 Comments No Intention Date Recorded No desire to become (finding) 0 12/20/2024 Sex and Gender Information Value Date Recorded Sex Assigned at Female 07/30/2022 9:25 AM EST Legal Sex Female 9:23 AM EST Gender Identity Female 07/30/2022 9:25 AM EST Sexual Orientation Straight 07/30/2022 9: 25 AM EST Last Filed Vital Signs Vital Sign Reading Time Taken Comments Blood Pressure 140/90 12/20/2024 11:45 AM EDT Pulse 69 12/20/2024 11:23 AM EDT Temperature 36.8 C (98.2 F) 12/20/2024 11:23 AM EDT Respiratory Rate 20 12/20/2024 11:2 3 AM EDT Oxygen Saturation 99% 12/20/2024 11: 23 AM EDT Inhaled Oxygen Concentration - - Weight 98.3 kg (216 lb 12.8 oz) 025 11:23 AM EDT Height 161 cm (5' 3.39 ) 12/20/2024 11: 23 AM EDT Body Mass Index 37.94 12/20/2024 11:23 AM EDT Plan of Treatment Upcoming Encounters Date Type Department Care Team (Late st Contact Info) Description 03/08/2025 1:00 PM EDT Office Visit [facility] [address], [place] [phone] Katherine Lee, THAO [address] [place] [address] Health Maintenance Due Date Last Done Comments Depression Screening 1993 Disability Screening 1993 Alcohol/Substance Use Screening 2005 HPV Vaccines (1 - 3-dose series) 2008 DTaP/Tdap/Td Vaccines (1 - Tdap) 2012 Hepatitis B Vaccines (1 of 3 - 19+ 3-dose series) 2012 COVID-19 Vaccine ( - 2023-2 5 season) 2024 Influenza Vaccine (#1) 2025 Dental X-Ray: Bitewings 03/24/2025 03/23/20 24, 11/12/2022 Dental Oral Exam 03/31/2025 09/28/2024, 04/13/2024, 11/12/2022 Dental Prophylaxis 04/01/2025 09/29/2024, 03/23/2024, 11/20/2022 SDOH Screening 04/20/2025 04/20/2024 Cervical Cancer Screening 06/17/2025 HPV/Cotest 06/17/2025 Pap Smear 06/17/2025 06/17/2022 Dental X-Ray: Full Mouth 11/13/2025 11/12/2022 Family Planning (PISQ) 12/20/2025 12/20/2024 Tobacco Screening 12/20/2025 12/20/2024 Lipid Panel 11/26/2029 11/26/2024 Zoster Vaccines (1 of 2) 2043 RSV Patients and Patients Aged 60 years or older (1 - 1-dose 75+ series) 2068 HIV Screening Completed 11/26/2024 Hepatitis C Screening Completed 11/26/2024 HIB Vaccines Aged Out No longer eligi [...] Years) and At-Risk Patients (6 to 49) Years Aged Out No longer eligible b ased on patient's age to complete this topic RSV under 20 months Aged Out No longe r eligible based on patient's age to complete this topic Rotavirus Vaccines Aged Out No longer eligible based on patient's age to complete this topic Procedures Procedure Name Priority Date/Time Associated Diagnosis Comments TSH W/REFLEX TO FT4 Routine 11/26/2024 4 :22 PM EDT Chronic tension-type headache, not intractable Class 2 obesity due to excess calories without serious comorbidity with body mass index (BMI) of 36.0 to 36.9 in adult VITAMIN D,25-OH,TOTAL,IA Routine 11/26/2024 4:22 PM EDT Chronic tension-type headache, not intractable Class 2 obesity due to excess calories without serious comorbidity with body mass index (BMI) of 36.0 to 36.9 in adult LIPID PANEL, STANDARD Routine 11/26/2024 4:22 PM EDT Chronic tension-type headache, not intractable Class 2 obesity due to excess calories without serious comorbidity with body mass index (BMI) of 36.0 to 36.9 in adult HEMOGLOBIN A1C Routine 11/26/2024 4:22 PM EDT Chronic tension-type headache, not intractable Class 2 obesity due to excess calories without serious comorbidity with body mass index (BMI) of 36.0 to 36.9 in adult COMPREHENSIVE METABOLIC PANEL Routine 11/26/2024 4:22 PM EDT Chronic tension-type headache, not intractable Class 2 obesity due to excess calories without serious comorbidity with body mass index (BMI) of 36.0 to 36.9 in adult CBC WITH AUTO DIFFERENTIAL Routine 11/26/2024 4:22 PM EDT Chronic tension-type headache, not intractable Class 2 obesity due to excess calories without serious comorbidity with body mass index (BMI) of 36.0 to 36.9 in adult HEPATITIS C AB W/REFL TO HCV RNA, QN, PCR Routine 11/26/2024 1:22 PM EDT Chronic tension-type headache, not intractable Class 2 obesity due to excess calories without serious comorbidity with body mass index (BMI) of 36.0 to 36.9 in adult HIV 1/2 ANTIGEN/ANTIBODY, FOURTH GENERATION W/RFL Routine 11/26/2024 1:22 PM EDT Chronic tension-type headache, not intractable Class 2 obesity due to excess calories without serious comorbidity with body mass index (BMI) of 36.0 to 36.9 in adult PROPHYLAXIS - ADULT Routine 09/29/2024 8 :00 AM EDT PERIODIC ORAL EVALUATION - ESTABLISHED PATIENT Routine 09/28/2024 3:00 PM EDT BITEWINGS - 4 RADIOGRAPHIC IMAGES Routine 03/23/2024 2:00 PM EDT INTRAORAL - COMPLETE SERIES OF RADIOGRAPHIC IMAGES Routine 11/12/2022 10:30 AM EDT Encounter for dental examination Dental caries Dental abscess HM PAP/HPV Routine 06/17/2022 1:07 PM EST from Last 3 Months or Most Recently Relevant to Health Maintenance Results * (ABNORMAL) Vitamin D, 25-Hydroxy, Total, Immunoassay (11/26/2024 4:22 PM EDT) Vitamin D 25-OH Total 16.6(L) >30 ng/mL [facility] Comment: Health Based Reference Values*< 20 ng/mL Byzyluzec02-55 ng/mL Insufficient> 30 ng/mL Sufficient*Joey MONTENEGRO. N Engl J Med. 2007;[id number]:[id number] is no well-established upper level of normal vitamin Dlevels. Some laboratories use 50 ng/mL as an upper limit ofnormal. However, toxicity is patient-dependent and may occurat any level. Careful correlation with the patient'spresentation is necessary and, if there is concern forvitamin D toxicity, treatment should be consideredirrespective of the serum level.Care must be taken in interpreting Vitamin D results fromdifferent laboratories and methodologies. Published datademonstrated that results from patients undergoinghemodialysis may show a negative bias when tested withvarious automated 25-OH vitamin D assays when compared toLC-MS/MS.When testing samples from patients whose predominant form ofVitamin D is Vitamin D2, such as patients receiving VitaminD2 supplementation, results that are subtherapeutic shouldbe confirmed with another method such as LC-MS/MS. Blood Venous blood specimen / Unknown 11/26/2024 4:22 PM EDT 11/26/2024 4:57 PM EDT us Kiesha Barone MD LAB BLOOD ORDERABLES Final Result Performing Organization Address [facility]/ZIP Co de Phone Number [facility] [address] [place] [phone] * TSH with Reflex to Free T4 (11/26/2024 4:22 PM EDT) TSH reflex Free T4 1.18 0.32 - 4.0 uIU/mL [facility] Blood Venous blood specimen / Unknown 11/26/2024 4:22 PM EDT 11/26/2024 4:57 PM EDT us Kiesha Barone MD LAB BLOOD ORDERABLES Final Result [facility] [address] [place] [phone] * (ABNORMAL) CBC auto differential (11/26/2024 4:22 PM EDT) White Blood Count 7.0 4.8 - 10.8 X10*3/uL [facility] Red Blood Count 4.39 4.20 - 5.50 X10*6/uL [facility] Hemoglobin 12.0 12.0 - 16.0 g/dl [facility] Hematocrit 35.6(L) 37.0 - 47.0 % [facility] Mean Corpuscular Volume 81.1 80.0 - 98.0 fL [facility] Mean Corpuscular Hemoglobin 27.3 27.0 - 33.0 pg [facility] Mean Corpuscular HGB Conc 33.7 31.0 - 35.0 g/dl [facility] Red Cell Distribution Width 13.8 11.0 - 16.0 % [facility] Platelet Count 198 160 - 400 X10*3/uL [facility] Mean Platelet Volume 12.5(H) 9.4 - 12.3 fL [facility] Neutrophils Percent Auto 64.5 45 - 73 % [facility] Imm Gran Pct Auto 0.9(H) 0.0 - 0.4 % [facility] Lymphocytes Percent Auto 26.3 20 - 40 % [facility] Monocytes Percent Auto 7.0 2 - 11 % [facility] Eosinophils Percent Auto 0.9 0 - 4 % [facility] Basophils Percent Auto 0.4 0 - 2 % [facility] NRBC Pct Auto 0.0 0.0 - 0.2 /100WBC [facility] Neutrophils Absolute Auto 4.5 2.0 - 8.3 x10*3/uL [facility] Imm Gran Abs Auto 0.06(H) 0.00 - 0.03 X10*3/uL [facility] Lymphocytes Absolute Auto 1.8 1.2 - 4.9 X10*3/uL [facility] Monocytes Absolute Auto 0.5 0.1 - 1.2 X10*3/uL [facility] Eosinophils Absolute Auto 0.1 0.0 - 0.4 X10*3/uL [facility] Basophils Absolute Auto 0.0 0.0 - 0.2 X10*3/uL [facility] NRBC Abs Auto 0.000 0.0 - 0.012 X10*3/uL [facility] Blood Venous blood specimen / Unknown 11/26/2024 4:22 PM EDT 11/26/2024 4:57 PM EDT Kiesha Barone MD LAB BLOOD ORDERABLES Final Result Performing Organization Address [facility]/ZIP Co de Phone Number [facility] [address] [place] [phone] * Hemoglobin A1c (11/26/2024 4:22 PM EDT) Hemoglobin A1c 5.4 <6.0 % [facility] Comment:Hemoglobin A1C Refer ence Range Adults: 4.8 - 6.0 % Non diabetic: < 6.0 % Goal: < 7.0 %Additional Action Suggested: > 8.0 %Note: Hemoglobin A1c results are invalid for patients with abnormal amounts of HbF. Blood transfusions may impact the HbA1c concentration in the patient sample. Estimated Average Glucose 108 mg/dL [facility] Comment:eAG = Estimated ave rage glucose which is %A1C expressed asaverage glucose, using the formula of the C0W-IidcptfIgqvxeo Glucose study (ADAG), Diabetes Care, Vol.31,#8,Jan. 2007 Blood Venous blood specimen / Unknown 11/26/2024 4:22 PM EDT 11/26/2024 4:57 PM EDT us Kiesha Barone MD LAB BLOOD ORDERABLES Final Result Performing Organization Address [facility]/ZIP Co de Phone Number [facility] [address] [place] [phone] * (ABNORMAL) Lipid Panel, Standard (11/26/2024 4:22 PM EDT) Triglycerides 93 <150 mg/dL [facility] Comment:Desirable Triglyceri de: less than 150 mg/dLBorderline High Triglyceride 150-199 mg/dLHigh Triglyceride: 200-499 mg/dLVery High Triglyceride: greater than or equal to 5OO mg/dL Cholesterol 170 <200 mg/dL [facility] Comment:Desirable Cholestero l: less than 200 mg/dLBorderline High Cholesterol: 200-239 mg/dLHigh Cholesterol: greater than 239 mg/dL LDL Cholesterol Calculated 112(H) <100 mg/dL [facility] Comment:Desirable LDL: less than 100 mg/dLNear Optimal/Above Optimal LDL: 110- 129 mg/dLBorderline High LDL: 130-159 mg/dLHigh LDL: 160-189 mg/dLVery High LDL: greater than or equal to 190 mg/dL HDL Cholesterol 40(L) >40 mg/dL [facility] Comment:Desirable HDL: great er than 40 mg/dL Note: This HDL assay may give artificially low results in patients with liver disease. Blood Venous blood specimen / Unknown 11/26/2024 4:22 PM EDT 11/26/2024 4:57 PM EDT us Kiesha Barone MD LAB BLOOD ORDERABLES Final Result [facility] [address] [place] [phone] * (ABNORMAL) Comprehensive Metabolic Panel (11/26/2024 4:22 PM EDT) Sodium 137 135 - 145 mmol/L [facility] Potassium 4.0 3.3 - 5.1 mmol/L [facility] Chloride 107 96 - 108 mmol/L [facility] Carbon Dioxide 27 22 - 29 mmol/L [facility] Anion Gap 7(L) 12 - 20 [facility] Urea Nitrogen (BUN) 13 9 - 16 mg/dL [facility] Creatinine, Serum 0.82 0.5 - 1.4 mg/dL [facility] Estimated Glomerular Filt Rate >60 [facility] Comment:Chronic Kidney Disea se: Estimated GFR < 60 mL/min/1.41m4Dajslg Kidney Disease: Estimated GFR < 15 mL/min/1.73m2 Glucose 73 60 - 115 mg/dL [facility] Calcium 8.7 8.4 - 10.2 mg/dL [facility] Bilirubin, Total 0.3 0.0 - 1.0 mg/dL [facility] Aspartate Amino Transferase 22 5 - 31 U/L [facility] Alanine Aminotransferase 12 0 - 31 U/L [facility] Total Protein 7.1 6.5 - 8.0 g/dL [facility] Albumin Level 3.8 3.5 - 5.0 g/dL [facility] Alkaline Phosphatase 52 39 - 117 U/L [facility] Blood Venous blood specimen / Unknown 11/26/2024 4:22 PM EDT 11/26/2024 4:57 PM EDT us Kiesha Barone MD LAB BLOOD ORDERABLES Final Result Performing Organization Address [facility] Co de Phone Number [facility] [address] [place] [phone] * Hepatitis C Antibody with Reflex to HCV, RNA, Quantitative, Real-Time PCR (11/26/2024 1:22 PM EDT) Hepatitis C Antibody Nonreactive Nonreactive [facility] Comment:Antibodies to HCV no t detected; does not exclude early acuteHCV infection. Blood Venous blood specimen / Unknown 11/26/2024 1:22 PM EDT 11/26/2024 4:57 PM EDT us Kiesha Barone MD LAB BLOOD ORDERABLES Final Result Performing Organization Address [facility]/ZIP Co de Phone Number [facility] [address] [place] [phone] * HIV-1/2 Antigen and Antibodies, Fourth Generation, with Reflexes (11/26/2024 1:22 PM EDT) HIV AB/AG Nonreactive Nonreactive [facility] Comment:HIV-1 p24 Ag and/or HIV-1/HIV-2 Ab not detected.A test result that is nonreactive does not exclude thepossibility of exposure to or infection with HIV-1 and/orHIV-2. Nonreactive results in this assay for individualswith prior exposure to HIV-1 and/or HIV-2 may be due toantigen and antibody levels that are below the limit ofdetection of this assay.The [place] HIV Ag/Ab Combo assay result andsupplemental assay results should be interpreted inconjunction with the patient's clinical presentation,history and other laboratory results. If the results areinconsistent with clinical evidence, additional testing issuggested to confirm the result. Blood Venous blood specimen / Unknown 11/26/2024 1:22 PM EDT 11/26/2024 4:57 PM EDT Kiesha Barone MD LAB BLOOD ORDERABLES Final Result [facility] [address] [place] [phone] * HM PAP/HPV (06/17/2022 1:07 PM EST) Historical Provider HEALTH MAINTENANCE Final Result from Last 3 Months or Most Recently Relevant to Health Maintenance [place] [address] [address] [place] [address] STANDARD [place] ST[place] AD[place] Care Teams Division Sales Manager Relationship Specialty Start Date End Date Kiesha Moreno MD [address] [place] [phone] PCP - General Internal Medicine 07/16/24
== END 2025-01-06 14:59 | disposition home or self-care (01) ==
LOC: HO.US 14:58
PROVIDERS: Visit Provider Advanced Practice Midwife
DX: N92.0 Excessive and frequent menstruation with regular cycle (principal)
CPT/HCPCS: 76830; 76856

== ENCOUNTER → 2025-01-06 15:00 | Outpatient (BNV) | payer MEDICAID, SELFPAY | PROVIDERS: Visit Provider Radiology Diagnostic Radiology | DX: N92.0 Excessive and frequent menstruation with regular cycle (principal) | CPT/HCPCS: 76830; 76856 ==

== ENCOUNTER 2025-03-23 11:28 | Outpatient (REF) | payer MEDICAID, SELFPAY | END 2025-03-23 11:29 | disposition home or self-care (01) | LOC: HO.LNP 11:28 | PROVIDERS: Visit Provider Internal Medicine | DX: Z12.4 Encounter for screening for malignant neoplasm of cervix (principal) | CPT/HCPCS: 88175 ==

== ENCOUNTER 2025-05-06 09:58 | Outpatient (REF) | payer MEDICAID, SELFPAY ==
--- OUTSIDE RECORDS SUMMARY | 2025-05-06 09:20 | XMS_ITS | Encounter Summary ---
Author Organization [employer] Address [address] [place] [address] Care Team Providers Care Sponge Press Operator Name Role Phone Kiesha Moreno MD Primary Care Provide r Reason for Visit * Reason Comments Headache Encounter Details Date Type Department Care Team (Latest Contact Info) Description 05/06/2025 9:20 AM EST Office Visit [facility] [address] [place] [address] Encounter for screening for infections with a predominantly sexual mode of transmission (Primary Dx); Elevated blood pressure reading in office without diagnosis of hypertension; Abnormal menses Social History Tobacco Use Types Packs/Day Years Used Date Smoking Tobacco: Never Passive Smoke Exposure: Never Smokeless Tobacco: Never Tobacco Cessation:Counseling Given: Not Answered Alcohol Use Standard Drinks/Week Comments Never 0 (1 standard drink = 0.6 oz pur e alcohol) Depression Answer Date Recorded Patient Health Questionnaire-9 Score 1 03/08/2025 Patient Health Questionnaire-9 Score 1 03/08/2025 Last PHQ-9: Questionnaire Data Not on file 0 03/08/2025 Housing Stability Answer Date Recorded What is your housing situation today? I have nuno knapp 03/08/[address] you li ve. Do you have problems with any of the following? I am not sure 03/08/2025 Food Insecurity Answer Date Recorded Within the past 12 months, y ou worried that your food would run out before you got money to buy more: Sometimes True 2024 Within the past 12 months,th e food you bought just didn't last and you didn't have enough money to get more: Sometimes True 03/08/2025 Transportation Answer Date Recorded In the past 12 months, has l ack of transportation kept you from medical appts, meetings, work or from getting things needed for daily living? I am not sure 03/08/2025 Utilities Answer Date Recorded In the past 12 months, has t he electric, gas, oil or water company threatened to shut off services in your home? No 04/20/2024 Depression Answer Date Recorded Patient Health Questionnaire-2 Score 0 03/08/2025 Internet Access Answer Date Recorded Internet Access Q1 I am not sure 03/08/2025 Internet Access Q2 Not on file 03/08/2025 Comments No Sex and Gender Information Value Date Recorded Sex Assigned at Female 07/30/2022 9:25 AM EST Legal Sex Female 9:23 AM EST Gender Identity Female 07/30/2022 9:25 AM EST Sexual Orientation Straight 07/30/2022 9: 25 AM EST documented as of this encounter Last Filed Vital Signs Vital Sign Reading Time Taken Comments Blood Pressure 149/98 05/06/2025 8:54 AM EST Pulse 69 05/06/2025 8:54 AM EST Temperature 36.8 C (98.3 F) 05/06/2025 8:54 AM EST Respiratory Rate 18 05/06/2025 8:54 AM EST Oxygen Saturation 100% 05/06/2025 8:54 AM EST Inhaled Oxygen Concentration - - Weight 98.4 kg (217 lb) 05/06/2025 8:54 AM EST Height - - Body Mass Index 37.25 03/22/2025 9:46 AM EDT documented in this encounter Plan of Treatment Upcoming Encounters Date Type Department Care Team (Late st Contact Info) Description 07/13/2025 2:00 PM EST Office Visit [facility] [address] [place] [address] Kiesha Moreno MD [address] [place] [address] Scheduled Orders Name Type Priority Associated Diagnoses Orde r Schedule Syphilis Screen Lab Routine Encounter for screening for infections with a predominantly sexual mode of transmission Expected: 05/06/2025, Expires: 05/06/2026 HIV-1/2 Antigen and Antibodies, Fourth Generation, with Reflexes Lab Routine Encounter for screening for infections with a predominantly sexual mode of transmission Expected: 05/06/2025 (Approximate), Expires: 05/06/2026 Hepatitis C Antibody with Reflex to HCV, RNA, Quantitative, Real-Time PCR Lab Routine Encounter for screening for infections with a predominantly sexual mode of transmission Expected: 05/06/2025, Expires: 05/06/2026 Hepatitis B surface antigen, EIA Lab Routine Encounter for screening for infections with a predominantly sexual mode of transmission Expected: 05/06/2025 (Approximate), Expires: 05/06/2026 Hepatitis B Core Antibody, Total Lab Routine Encounter for screening for infections with a predominantly sexual mode of transmission Expected: 05/06/2025 (Approximate), Expires: 05/06/2026 Hepatitis B Surface Antibody, Qualitative Lab Routine Encounter for screening for infections with a predominantly sexual mode of transmission Expected: 05/06/2025 (Approximate), Expires: 05/06/2026 Chlamydia/N. Gonorrhoeae RNA, TMA, Vaginal Microbiology Routine Encounter for screening for infections with a predominantly sexual mode of transmission Ordered: 05/06/2025 documented as of this encounter Procedures Procedure Name Priority Date/Time Associated Diagnosis Comments POCT , URINE Routine 05/06/2025 9:58 AM EST Abnormal menses documented in this encounter Results * POCT Urine (05/06/2025 9:58 AM EST) Preg Test, Ur Negative Negative, Indeterminate, None Detected, Invalid, Specimen unsatisfactory for evaluation, Weakly Positive, 2+ Urine 05/06/2025 9:58 AM EST [facility] POINT OF CARE TEST ENTER/EDIT ORDERABLES Final Result documented in this encounter Visit Diagnoses Diagnosis Encounter for screening for infections with a predominantly sexual mode of transmission- Primary Elevated blood pressure reading in office without diagnosis of hypertension Abnormal menses Unspecified disorder of menstruation and other abnormal bleeding from female genital tract documented in this encounter Additional Health Concerns Assessment Noted Time PHQ-9 Depression Total Score: 1 03/08/20 25 1:48 PM EDT documented as of this encounter Care Teams Sponge Press Operator Relationship Specialty Start Date End Date Kiesha Moreno MD [address] [place] [phone] PCP - General Internal Medicine 07/16/24 documented as of this encounter
--- OUTSIDE RECORDS SUMMARY | 2025-05-06 11:43 | XMS_ITS | Encounter Summary ---
Author Organization [employer] Address [address] [facility] 7t [place] [address] Care Team Providers Care Angio Technologist Name Role Phone Kiesha Moreno MD Primary Care Provide r Encounter Details Date Type Department Care Team (Latest Contact Info) Description 05/06/2025 Travel Social History Tobacco Use Types Packs/Day Years Used Date Smoking Tobacco: Never Passive Smoke Exposure: Never Smokeless Tobacco: Never Alcohol Use Standard Drinks/Week Comments Never 0 [...] AM EST documented as of this encounter Plan of Treatment Upcoming Encounters Date Type Department Care Team (Late st Contact Info) Description 07/13/2025 2:00 PM EST Office Visit [facility] [address] [place] [address] Kiesha Moreno MD [address] [place] [phone] documented as of this encounter Visit Diagnoses Not on filedocumented in this encounter Additional Health Concerns Assessment Noted Time PHQ-9 Depression Total Score: 1 03/08/20 25 1:48 PM EDT documented as of this encounter Care Teams Angio Technologist Relationship Specialty Start Date End Date Kiesha Moreno MD [address] [place] [phone] PCP - General Internal Medicine 07/16/24 documented as of this encounter
--- OUTSIDE RECORDS SUMMARY | 2025-05-06 11:43 | XMS_ITS | Encounter Summary ---
Author Organization [employer] Address [address] 7[address] [place] [address] Care Team Providers Care Flooring Grader Name Role Phone Kiesha Moreno MD Primary Care Provide r Encounter Details Date Type Department Care Team (Late st Contact Info) Description 07/26/2024 Orders Only [facility] [address] [place] [address] ProviderAnnamaria MD Social History Tobacco Use Types Packs/Day Years Used Date Smoking Tobacco: Never Passive Smoke Exposure: Never Smokeless Tobacco: Never Alcohol Use Standard Drinks/Week Comments Never 0 (1 standard drink = 0.6 oz pur e alcohol) Housing Stability Answer Date Recorded What is your housing situation today? I do not have housing (Staying with others, in a hotel, in a nursing home, living outside on the street, on a [...] Description 07/13/2025 2:00 PM EST Office Visit [facility] [address] [place] [address] Kiesha Moreno MD [address] [place] [phone] documented as of this encounter Procedures Procedure Name Priority Date/Time Associated Diagnosis Comments HM PAP/HPV Routine 06/17/2022 1:07 PM EST documented in this encounter Results * HM PAP/HPV (06/17/2022 1:07 PM EST) us Historical Provider HEALTH MAINTENANCE Final Result documented in this encounter Visit Diagnoses Not on filedocumented in this encounter Care Teams Flooring Grader Relationship Specialty Start Date End Date Kiesha Moreno MD [address] [place] [phone] PCP - General Internal Medicine 07/16/24 documented as of this encounter
--- OUTSIDE RECORDS SUMMARY | 2025-05-06 11:43 | XMS_ITS | Encounter Summary ---
Author Organization [employer] Address [address] [place] [address] 7 [place] [address] Care Team Providers Care Impact Hammer Operator Name Role Phone Kiesha Moreno MD Primary Care Provide r Encounter Details Date Type Department Care Team (Late st Contact Info) Description 12/24/2022 Abstract [facility] [address] [place] [address] Comfort Linares DDS [address] [place] [address] Social History Tobacco Use Types Packs/Day Years Used Date Smoking Tobacco: Never Smokeless Tobacco: Never Comments Unknown Sex and Gender Information Value Date Recorded Sex Assigned at Female 07/30/2022 9:25 AM EST Legal Sex Female 9:23 AM EST Gender Identity Female 07/30/2022 9:25 AM EST Sexual Orientation Straight 07/30/2022 9: 25 AM EST COVID-19 Exposure Response Date Recorded In the last 10 days, have yo u been in contact with someone who was confirmed or suspected to have Coronavirus/COVID-19? No / Unsure 12/25/2022 11:16 AM EDT documented as of this encounter Plan of Treatment Upcoming Encounters Date Type Department Care Team (Late st Contact Info) Description 07/13/2025 2:00 PM EST Office Visit [facility] [address] [place] [address] Kiesha Moreno MD [address] [place] [address] documented as of this encounter Visit Diagnoses Not on filedocumented in this encounter Care Teams Impact Hammer Operator Relationship Specialty Start Date End Date Kiesha Moreno MD [address] [place] [phone] PCP - General Internal Medicine 07/16/24 documented as of this encounter
--- OUTSIDE RECORDS SUMMARY | 2025-05-06 11:43 | XMS_ITS | Clinical Summary ---
Author Organization [employer] Address [address] [facility] 7t [place] [address] Care Team Providers Care Multiplex Operator Name Role Phone Kiesha Moreno MD [...] mouth Once per day. 28 tablet 11 5 Active phentermine 15 MG capsuleIndication s:Class 2 obesity due to excess calories without serious comorbidity with body mass index (BMI) of 38.0 to 38.9 in adult Take 1 capsule (15 mg) by mouth before breakfast. 30 capsule 1 5 05/21/20 25 Active topiramate (Topamax) 25 MG tabletIndications :Class 2 obesity due to excess calories without serious comorbidity with body mass index (BMI) of 38.0 to 38.9 in adult Take 1 tablet (25 mg) by mouth Once per day. 30 tablet 1 5 03/22/20 26 Active Blood Pressure kitIndications:El evated blood pressure reading in office without diagnosis of hypertension Use as directed 1 kit 5 Active Active Problems Problem Noted Date Diagnosed Date Class 2 obesity due to exces s calories without serious comorbidity with body mass index (BMI) of 38.0 to 38.9 in adult 03/22/2025 Assessment & Plan (03/22/2025 10:41 AM EDT): Extensive counseling about healthy diet and exercise done today I said to start her on phentermine 15 mg daily together with topiramate 25 mg daily, conversation about side effects was done today I let her know medication can cause anxiety, palpitations and her blood pressure to go up so I advised to be vigilant about this Plan is for her to come back in 6 weeks to wait her and monitor for side effects Encounter for Papanicolaou smear of cervix 03/22 Assessment & Plan (03/22/2025 10:41 AM EDT): Pap and pelvic exam done today patient will be contacted with results Chronic tension-type headache, not intractable 0 07/16/2024 Assessment & Plan (07/16/2024 11:21 AM EST): Currently stable Severe obesity (CMS/HCC) 04/13/2024 Assessment & Plan (07/16/2024 11:21 AM EST): Today extensive discussion was done about life style modifications I advise healthy diet (low calorie) and cardiovascular exercise Labs ordered Encounters Date Type Department Care Team Description 05/06/2025 9:20 AM EST Office Visit [facility] [address] [place] [phone] Encounter for screening for infections with a predominantly sexual mode of transmission (Primary Dx); Elevated blood pressure reading in office without diagnosis of hypertension; Abnormal menses 05/06/2025 Travel 04/25/2025 Telephone [facility] [address] [place] [phone] Kiesha Moreno MD Results 04/22/2025 Results Follow-Up [facility] [address] [place] [phone] Kiesha Moreno MD Pap Smear 03/22/2025 9:30 AM EDT Procedure Visit [address] [address] Kiesha Moreno MD Class 2 obesity due to excess calories without serious comorbidity with body mass index (BMI) of 38.0 to 38.9 in adult (Primary Dx); Encounter for Papanicolaou smear of cervix 03/22/2025 Travel 03/21/2025 Telephone [facility] [address] [place] [phone] Kiesha Moreno MD Chart Prep 03/09/2025 Patient Outreach [facility] [address] [place] [address] Kiesha Moreno MD Care Coordination ([facility] outreach for [facility] housing search-LVM ) 03/08/2025 1:00 PM EDT Office Visit [facility] [address] [place] [phone] Katherine Lee CNM Menorrhagia with regular cycle (Primary Dx); Encounter for surveillance of contraceptive pills 03/08/2025 Travel 03/07/[address] [address] Katherine Lee CNM chart prep 03/01/2025 2:00 PM EDT Office Visit [facility] [address] [place] [address] Lyn-Hernandez, Comfort, DDS Teeth missing (Primary Dx) 02/22/2025 Travel 02/16/2025 8:30 AM EDT Office Visit [facility] [address] [place] [address] Lyn-Hernandez, Comfort, DDS Teeth missing (Primary Dx) 02/16/[address] [address] Kiesha Moreno MD Med Refill 02/16/2025 Travel from Last 3 Months Social History Tobacco [...] your housing situation today? I have nuno sing 03/08/[address] you li [...] Q2 Not on file 03/08/2025 Comments No Intention Date Recorded No desire to become (finding) 0 03/08/2025 Sex and Gender Information Value Date Recorded [...] (217 lb) 05/06/2025 8:54 AM EST Height 162.6 cm (5' 4 ) 03/22/2025 9:46 AM EDT Body Mass Index 37.25 03/22/2025 9:46 AM EDT Plan of Treatment Upcoming Encounters Date Type Department Care Team (Late st Contact Info) Description 07/13/2025 2:00 PM EST Office Visit [facility] [address] [place] [address] Kiesha Moreno MD [address] [place], [place] [phone] Health Maintenance Due Date Last Done Comments HPV Vaccines (1 - 3-dose series) 2008 DTaP/Tdap/Td Vaccines (1 - Tdap) 2012 Hepatitis B Vaccines (1 of 3 - 19+ 3-dose series) 2012 COVID-19 Vaccine ( - 2023-2 5 season) 2025 Influenza Vaccine (#1) 2025 Dental X-Ray: Bitewings 03/24/2025 03/23/20, 11/12/2022 Dental Oral Exam 03/31/2025 09/28/2024, 04/13/2024, 11/12/2022 Dental Prophylaxis 04/01/2025 09/29/2024, 03/23/2024, 11/20/2022 Cervical Cancer Screening 06/17/2025 HPV/Cotest 06/17/2025 Dental X-Ray: Full Mouth 11/13/2025 11/12/2022 Alcohol/Substance Use Screening 03/08/2026 03/08/2025 Depression Screening 03/08/2026 03/08/2025, 03/08/2025 Disability Screening 03/08/2026 03/08/2025 Family Planning (PISQ) 03/08/2026 03/08/2025 SDOH Screening 03/08/2026 03/08/2025 Tobacco Screening 05/06/2026 05/06/2025 Pap Smear 03/22/2028 03/22/2025, 06/17/2022 Lipid Panel 11/26/2029 11/26/2024 Zoster Vaccines (1 [...] Routine 05/06/2025 9:58 AM EST Abnormal menses PAP SMEAR Routine 03/22/2025 10:20 AM EDT Encounter for Papanicolaou smear of cervix CASE PRESENTATION, DETAILED AND EXTENSIVE TREATMENT PLANNING Routine 03/01/2025 2:00 PM EDT Teeth missing 18,19,30,31 MANDIBULAR PARTIAL DENTURE - RESIN BASE (INCLUDING, RETENTIVE/CLASPING MATERIALS, RESTS, AND TEETH) Routine 03/01/2025 2:00 PM EDT Teeth missing WAX TRY IN Routine 02/16/2025 8:30 AM EDT Teeth missing LIPID PANEL, STANDARD Routine 11/26/2024 4:22 PM [...] for dental examination Dental caries Dental abscess from Last 3 Months or Most Recently Relevant to Health Maintenance Results * POCT Urine (05/06/2025 9:58 AM EST) Preg Test, Ur Negative Negative, Indeterminate, None Detected, Invalid, Specimen unsatisfactory for evaluation, Weakly Positive, 2+ Urine 05/06/2025 9:58 AM EST [facility] POINT OF CARE TEST ENTER/EDIT ORDERABLES Final Result * Pap Smear (03/22/2025 10:20 AM EDT) Swab 03/22/2025 10:2 0 AM EDT 03/23/2025 11:28 AM EDT Narrative [facility] - 03/28/2025 2:47 PM EDT ----- ------- Name: DellanashJosiahnigel Age/Sex: 29/F : 1995 Unit#: [id number] Attend Dr: Kiesha Moreno MD Re03/23/25 Status: REG REF Location: [facility] Disch: ----- ------- SPEC : [id number] RECD: 03/23/25 STATUS: SULAIMAN ESPINOZA NUM: [id number] SUMI: 03/22/25-[address] [facility] [address]: Kiesha Moreno MD ENTERED: 03/23/25115 SP TYPE: Pap Smr OT DR: ORDERED: Pap Smear Interpretation Satisfactory for evaluation. Negative for intraepithelial lesion or malignancy. Clinical Information LMP: Unknown date Previous PAP test: Unknown date/findings Other history: Encounter for Papanicolaou smear of cervix Material Received ThinPrep-Vaginal/Cervical PAP Disclaimer As of April 21, 2024, the technical services to include automated prescreening performed by the ThinPrep Imaging System, PAP screening and HPV testing will be performed at [facility] (CLIA #[id number]), [address] [place] [address]. Testing for HPV was performed using the Jose DANYELLE [id number] system. The presence of HPV in the female genital tract is associated with a number of diseases, including cervical carcinoma. The HPV DNA high risk pool tests for HPV 31, 33, 35, 39, 45, 51, 52, 56, 58, 59, 66 and 68. The testing for HPV 16 and 18 genotypes has also been performed. A positive result indicates detection of nucleic acid sequences from one or more subtypes, whereas a negative result indicates such sequences were not detected. All professional services are performed by [facility] ([address] [place] [id number]; ; CLIA #[id number]). The PAP Test is a screening procedure with the inherent possibility of both false negative and false positive results. Results should be interpreted in the context of historic and current clinical findings. Reliability of the PAP Test is enhanced by performing the test on a regular repetitive basis. ----- ------- Signed (signature on file) JESSICA Fernandez ([facility]) 03/28/25 1447 ----- ------- END OF REPORT us Kiesha Barone MD LAB CYTOLOGY ORDERABL ES Final Result [facility] [address] [place] [address] [phone] * (ABNORMAL) Lipid Panel, Standard (11/26/2024 4:22 PM EDT) Triglycerides 93 <150 mg/dL [facility] Comment:Desirable Triglyceri de: less than 150 mg/dLBorderline High Triglyceride 150-199 mg/dLHigh Triglyceride: 200-499 mg/dLVery High Triglyceride: greater than or equal to 5OO mg/dL Cholesterol 170 <200 mg/dL [facility] Comment:Desirable Cholestero l: less than 200 mg/dLBorderline High Cholesterol: 200-239 mg/dLHigh Cholesterol: greater than 239 mg/dL LDL Cholesterol Calculated 112(H) <100 mg/dL [facility] Comment:Desirable LDL: less than 100 mg/dLNear Optimal/Above Optimal LDL: 110- 129 mg/dLBorderline High LDL: 130-159 mg/dLHigh LDL: 160-189 mg/dLVery High LDL: greater than or equal to 190 mg/dL HDL Cholesterol 40(L) >40 mg/dL [facility] Comment:Desirable HDL: great er than 40 mg/dL Note: This HDL assay may give artificially low results in patients with liver disease. Blood Venous blood specimen / Unknown 11/26/2024 4:22 PM EDT 11/26/2024 4:57 PM EDT Kiesha Barone MD LAB BLOOD ORDERABLES Final Result Performing Organization Address [facility] Co de Phone Number [facility] [address] [place] [phone] * Hepatitis C Antibody with Reflex to HCV, RNA, Quantitative, Real-Time PCR (11/26/2024 1:22 PM EDT) [facility] Hepatitis C Antibody Nonreactive Nonreactive [facility] Comment:Antibodies to HCV no t detected; does not exclude early acuteHCV infection. Blood Venous blood specimen / Unknown 11/26/2024 1:22 PM EDT 11/26/2024 4:57 PM EDT Kiesha Barone MD LAB BLOOD ORDERABLES Final Result Performing Organization Address [facility] Co de Phone Number [facility] [address] [place] [phone] * HIV-1/2 Antigen and Antibodies, Fourth Generation, with Reflexes (11/26/2024 1:22 PM EDT) Pathologist [facility] HIV AB/AG Nonreactive Nonreactive [facility] Comment:HIV-1 p24 Ag and/or HIV-1/HIV-2 Ab not detected.A test result that is nonreactive does not exclude thepossibility of exposure to or infection with HIV-1 and/orHIV-2. Nonreactive results in this assay for individualswith prior exposure to HIV-1 and/or HIV-2 may be due toantigen and antibody levels that are below the limit ofdetection of this assay.The [employer]ZE[employer]yk[employer] HIV Ag/Ab Combo assay result andsupplemental assay results should be interpreted inconjunction with the patient's clinical presentation,history and other laboratory results. If the results areinconsistent with clinical evidence, additional testing issuggested to confirm the result. Blood Venous blood specimen / Unknown 11/26/2024 1:22 PM EDT 11/26/2024 4:57 PM EDT us Kiesha Barone MD LAB BLOOD ORDERABLES Final Result [facility] [address] [place] [phone] from Last 3 Months or Most Recently Relevant to Health Maintenance [place] [address] [place] [address] C3 DENTAL-[facility] MEDICAID STAND ADULT Care Teams Multiplex Operator Relationship Specialty Start Date End Date Kiesha Moreno MD [address] [place] [address] [place] [address] PCP - General Internal Medicine 07/16/24
--- OUTSIDE RECORDS SUMMARY | 2025-05-06 11:43 | XMS_ITS | Encounter Summary ---
Author Organization [employer] Address [address] [place] [address] Care Team Providers Care Hr Operations Advisor Name Role Phone Kiesha Moreno MD Primary Care Provide r Encounter Details Date Type Department Care Team ([facility] st Contact Info) Description 04/22/2025 Results Follow-Up [facility] MED[facility] [address] [place] [address] Kiesha Moreno MD [address] [place] [address] Pap Smear Social History Tobacco Use Types Packs/Day Years [...] Description 07/13/2025 2:00 PM EST Office Visit [facility] [address] [place] [id number] Kiesha Moreno MD [address] [place] [address] documented as of this encounter Visit Diagnoses Not on filedocumented in this encounter Additional Health Concerns Assessment Noted Time PHQ-9 Depression Total Score: 1 03/08/20 25 1:48 PM EDT documented as of this encounter Care Teams Hr Operations Advisor Relationship Specialty Start Date End Date Kiesha Moreno MD [address] [place] [id number] PCP - General Internal Medicine 07/16/24 documented as of this encounter
[2025-05-06 12:20] LABS: Syphilis Screen Nonreactive (Nonreactive)
[2025-05-06 12:22] LABS: HBc Num1 0.10 S/CO (0.00-0.79); HBsAGNum1 0.31 S/CO (0.00-0.99); HIV Num 1 0.06 S/CO (0.00-0.99); Hepatitis B Surface Antigen Negative (Negative); ~HepC Num1 0.07 S/CO (0.00-0.79); ~Hepatitis B Surface Antibody REACTIVE (Nonreactive); ~Hepatitis C Antibody Nonreactive (Nonreactive)
[2025-05-06 21:52] LABS: CT PCR NOT DETECTED (Not Detect.); NG PCR NOT DETECTED (Not Detect.)
== END 2025-05-06 09:59 | disposition home or self-care (01) ==
LOC: HO.HHCL 09:58
PROVIDERS: PCP Internal Medicine; Visit Provider Registered Nurse
DX: Z20.2 Contact with and (suspected) exposure to infections with a predominantly sexual mode of transmission (principal); Z11.59 Encounter for screening for other viral diseases
CPT/HCPCS: 36415; 86704; 86706; 86780; 86803; 87340; 87389; 87491; 87591